=== PATIENT | female | born 1960 | race Hispanic/Latino ===

== ENCOUNTER → 2018-11-30 | Outpatient (CLI) | payer OTHER | END | disposition home or self-care (01) | LOC: OIH 12:34 | PROVIDERS: ATTEND Internal Medicine | DX: Z13.6 Encounter for screening for cardiovascular disorders (principal) | CPT/HCPCS: 75571 ==

== ENCOUNTER → 2024-08-27 | Outpatient (CLI) | payer OTHER, MEDICARE ==
--- NOTE | 2024-08-27 18:02 | HMCIMG ---
US SOFT TISSUE AXILLA REASON: UNSPECIFIED LUMP. COMPARISON: None TECHNIQUE: Ultrasound of left axilla was obtained. FINDINGS: Over the region of interest in the left axilla, no evidence of cystic or hypoechoic mass is seen. IMPRESSION: No acute finding at the region of interest.
== END | disposition home or self-care (01) ==
LOC: RAH 13:41
PROVIDERS: ATTEND Internal Medicine
DX: C50.912 Malignant neoplasm of unspecified site of left female breast (principal); N63.32 Unspecified lump in axillary tail of the left breast
CPT/HCPCS: 76882